=== PATIENT | female | born 1970 | race Caucasian/White ===

== ENCOUNTER 2019-12-20 14:38 | Emergency (ER) | payer BC, OTHER ==
--- NOTE | 2019-12-20 16:13 | ER Document Report ---
HPI - HPI Patient complains to provider of: right leg pain Time Seen by Provider: 12/20/19 15:30 Pain Level: 2 Context: 49-year-old female presents to the emergency room complaining of right diego pain. States she hit it on a wooden trunk last night around 8 PM sustaining a small laceration. States it bled for several minutes she cleansed it has not had any bleeding since. Her tetanus is up-to-date. Patient states she is been taking ibuprofen and Tylenol with relief. Is painful to walk. No history of previous trauma or injury to her leg. Denies any chest . Exacerbated by: Movement, Walking Relieved by: Remaining still Similar symptoms previously: No Recently seen / treated by doctor: No - ROS Systems Reviewed and Negative: Yes All other systems reviewed and negative - CONSTITUTIONAL Constitutional: DENIES: Fever - NEURO Neurology: DENIES: Weakness - REPRODUCTIVE Reproductive: DENIES: : - MUSCULOSKELETAL Musculoskeletal: REPORTS: Extremity pain - DERM Skin Color: Erythema Skin Problems: Laceration Past Medical History - General Information source: Patient - Social History Smoking Status: Never Smoker Frequency of alcohol use: Occasional Drug Abuse: None Family History: Reviewed & Not Pertinent Pulmonary Medical History: Reports: Hx COPD - Immunizations Hx Diphtheria, Pertussis, Tetanus Vaccination: Yes Vertical Provider Document - CONSTITUTIONAL Agree With Documented VS: Yes Exam Limitations: No Limitations General Appearance: Mild Distress - INFECTION CONTROL TRAVEL OUTSIDE OF THE [place] IN LAST 30 DAYS: No - HEENT HEENT: Atraumatic, Normocephalic - NECK Neck: Normal Inspection, Supple, Thyroid Normal - RESPIRATORY Respiratory: Breath Sounds Normal, No Respiratory Distress, Chest Non-Tender - CARDIOVASCULAR Cardiovascular: Regular Rate, Regular Rhythm, No Murmur - MUSCULOSKELETAL/EXTREMETIES Musculoskeletal/Extremeties: Tender - Tenderness, swelling, well-healing laceration noted to the right diego. It is tender to palpation. It is not warm to touch. No active discharge or draining noted. - NEURO Level of Consciousness: Awake, Alert, Appropriate Motor/Sensory: No Motor Deficit, No Sensory Deficit Notes: Positive right pedal pulse. Capillary refill less than 3 seconds. - DERM Integumentary: Warm, Dry, Laceration Notes: There is a 1 cm flap laceration that is healing to the right mid diego. Tender to palpation. No active discharge or draining noted. No active bleeding noted. Ecchymosis noted to right mid diego, tender to palpation. Course - Re-evaluation Re-evalutation: 12/20/19 16:49 Patient is resting comfortably she is able to ambulate with limping noted to the right leg. Reviewed negative x-ray results with patient. She was counseled on proper wound care. Patient will be given crutches. With crutch training provided by nursing staff as documented. She was counseled to rest, ice, eugenia vate her right leg. Outpatient follow-up with orthopedics if not improving in 2 to 3 days. On-call physician was provided. Patient was given strict return to the emergency room guidelines. Return for any new or worsening symptoms. All questions were answered. Patient verbalized understanding and agrees with plan of care. - Vital Signs Vital signs: Temp Pulse Resp BP Pulse Ox 98.3 F 87 18 139/83 H 98 12/20/19 14:55 12/20/19 14:55 12/20/19 14:55 12/20/19 14:55 12/20/19 14:55 - Diagnostic Test Radiology reviewed: Reports reviewed Procedures - Immobilization Right Leg Time completed: 16:50 Pre-Proc Neuro Vasc Exam: Normal Immobilizer type: Crutches Performed by: PCT Post-Proc Neuro Vasc Exam: Normal Alignment checked and good: Yes Discharge - Discharge Clinical Impression: Contusion of right leg Qualifiers: Encounter type: initial encounter Qualified Code(s): S80.11XA - Contusion of right lower leg, initial encounter Laceration of right lower leg Qualifiers: Encounter type: initial encounter Qualified Code(s): S81.811A - Laceration without foreign body, right lower leg, initial encounter Condition: Stable Disposition: HOME, SELF-CARE Instructions: Contusion ([facility]), Non-Sutured Laceration ([facility]) Additional Instructions: Rest, ice, and elevate your right knee. Continue with Tylenol and Motrin as needed for pain. Weightbearing as tolerated. Follow-up with orthopedics for any difficulties. Return to emergency room for any new or worsening symptoms. Referrals: ROLO BARRERA MD [ACTIVE STAFF] - Follow up as needed
--- NOTE | 2019-12-20 16:21 | RADIOLOGY REPORT (SQ) ---
EXAM DESCRIPTION: TIBIA FIBULA RIGHT IMAGES COMPLETED DATE/TIME: 12/20/2019 3:01 pm REASON FOR STUDY: injury COMPARISON: None. NUMBER OF VIEWS: Two views. TECHNIQUE: Two radiographic images acquired of the right tibia and fibula to include the knee and an kle in at least one projection. LIMITATIONS: None. FINDINGS: MINERALIZATION: Normal. BONES: No acute fracture or dislocation. No worrisome bone lesions. SOFT TISSUES: No obvious swelling or foreign body. OTHER: No other significant finding. IMPRESSION: NEGATIVE STUDY OF THE RIGHT TIBIA AND FIBULA. NO RADIOGRAPHIC EVIDENCE OF ACUTE INJURY. TECHNICAL DOCUMENTATION: JOB ID: [id number] 2010 [employer]- All Rights Reserved Reading location - IP/workstation name: [email or web address]
[2019-12-20 17:05] VITALS: BP 120/70
== END 2019-12-20 17:04 | disposition home or self-care (01) ==
LOC: ER 14:38
DX: S80.11XA Contusion of right lower leg, initial encounter (principal); S81.811A Laceration without foreign body, right lower leg, initial encounter; W22.09XA Striking against other stationary object, initial encounter
CPT/HCPCS: 99283

== ENCOUNTER → 2020-02-19 | Outpatient (CLI) | payer SELFPAY ==
[2020-02-19 10:59] VITALS: BP 123/73
--- NOTE | 2020-02-19 10:59 | ER RDC ASSESSMENT REPORT ---
Intake - In the Last 14 days Have you traveled outside [place]?: No Have you been in close contact with someone CONFIRMED: No Worked in Healthcare?: No - Symptoms Subjective Fever([place] feverish): Yes Chills: No Muscule Aches: Yes Runny Nose: No Sore Throat: No Cough (New or worsening chronic cough): Yes Shortness of breath: Yes Nausea or Vomiting: Yes Headache: No Abdominal Pain: No Diarrhea(3 or more loose stools in last 24 hours): No - Do you have any of the following Chronic lung disease: Asthma or emphysema or COPD: Yes Cystic Fibrosis: No Diabetes: No High Blood Pressure: No Cardiovascular Disease: No Chronic Kidney Disease: No Chronic Liver Disease: No Chronic blood disorder like Sickle Cell Disease: No Weak immune system due to disease or medication: No Neurologic condition that limits movement: No Developmental delay - Moderate to Severe: No Recent (within past 2 weeks) or current : No Morbid Obesity (>100 pounds over ideal weight): No - Objective Temperature: 98.6 F Pulse Rate: 90 Respiratory Rate: 18 Blood Pressure: 123/73 O2 Sat by Pulse Oximetry: 97 Objective: Given above, testing performed: flu strep, covid Disposition: Home; Selfcare General - General Stated Complaint: fatigue, congestion Time Seen by Provider: 02/19/20 10:45 Mode of Arrival: Ambulatory Information source: Patient - HPI Notes: 50-year-old female presents to [facility] clinic for COVID-19 testing. Patient denies any known exposure to Covid positive individual. Onset of symptoms 1 to 2 days ago. Patient is reporting subjective fever, muscle aches, dry cough, mild shortness of breath, nausea, fatigue and congestion. Denies any chills, runny nose or sore throat, abdominal pain or diarrhea, or headache. - Related Data Allergies/Adverse Reactions: codeine Allergy (Verified 12/20/19 16:57) prochlorperazine [From Compazine] Allergy (Verified 12/20/19 16:57) Sulfa (Sulfonamide Antibiotics) Allergy (Verified 12/20/19 16:57) Past Medical History - General Information source: Patient - Social History Family History: Reviewed & Not Pertinent - Past Medical History Cardiac Medical History: Reports: None Pulmonary Medical History: Reports: Hx COPD EENT Medical History: Reports: None Neurological Medical History: Reports: None Endocrine Medical History: Reports: None Renal/ Medical History: Reports: None Malignancy Medical History: Reports: None GI Medical History: Reports: None Musculoskeletal Medical History: Reports None Skin Medical History: Reports None Psychiatric Medical History: Reports: None Traumatic Medical History: Reports: None Infectious Medical History: Reports: None Past Surgical History: Reports: Hx Section Physical Exam - General General appearance: Appears well, Alert In distress: None Notes: PHYSICAL EXAMINATION: GENERAL: Well-appearing and in no acute distress. HEAD: Atraumatic, normocephalic. EYES: sclera anicteric, conjunctiva are normal. ENT: nares patent. Moist mucous membranes. NECK: Normal range of motion, supple without lymphadenopathy. LUNGS: No increased work of breathing. Lung sounds CTAB and equal. No wheezes rales or rhonchi. HEART: Regular rate and rhythm without murmurs. ABDOMEN: Soft, nontender, normal bowel sounds, no guarding. EXTREMITIES: Normal range of motion, no pitting edema. No cyanosis. NEUROLOGICAL: A&O x 3. Normal speech. PSYCH: Normal mood, normal affect. SKIN: Warm, Dry, normal turgor, no rashes or lesions noted Patient Education/Counseling Counseling/Education: Patient presents with symptoms associated with possible Covid 19 infection. Patient does not have emergency worrying symptoms such as difficulty breathing, shortness of breath, chest pain, pressure, confusion or cyanosis. Patient appears suitable for discharge as vital signs are stable and patient is nontoxic in appearance. Good return precautions have been discussed with patient, patient verbalized understanding and is agreeable with discharge plan of care at this time. Guidance for worsening S/SX: As a person under investigation for Covid 19, the [place] department of Health and Human Services, division of public health advises you to adhere to the following guidance until your test results are reported to you. If your test result is positive, you will receive additional information from your provider and your local health department at that time. Remain at home until you are cleared by the health provider or public health authorities. Keep a log of visitors to your home, notify any visitors to your home of your isolation status. If you plan to move to a new address or leave the county, notify the local health department in your County. Call your doctor or seek care if you have an urgent medical need. Before seeking medical care, call ahead to get instructions from the provider before arriving at the medical office clinic or hospital. Notify them that you are being tested for the virus that causes Covid 19 so that arrangements can be made, as necessary, to prevent transmission to others in the healthcare setting. Next, notify the local health department in your county. If a medical emergency arises and you need to call 911, inform the first responders that you are being tested for the virus that causes Covid 19. Next, notify the local health department in your county. RDC Discharge - Discharge Clinical Impression: Encounter for screening laboratory testing for COVID-19 virus Upper respiratory infection Qualifiers: URI type: unspecified URI Qualified Code(s): J06.9 - Acute upper respiratory infection, unspecified Condition: Good Disposition: Home; Selfcare
[2020-02-19 16:48] LABS: A TYPE INFLUENZA AG NEGATIVE (NEGATIVE)
[2020-02-19 16:49] LABS: B INFLUENZA AG NEGATIVE (NEGATIVE)
== END ==
LOC: RDC 10:11
PROVIDERS: ATTEND Registered Nurse
DX: J06.9 Acute upper respiratory infection, unspecified (principal); Z20.828 Contact with and (suspected) exposure to other viral communicable diseases; R50.9 Fever, unspecified; R05 Cough; M79.10 Myalgia, unspecified site; J44.9 Chronic obstructive pulmonary disease, unspecified; R06.02 Shortness of breath; R11.0 Nausea; R53.83 Other fatigue; R09.81 Nasal congestion; Z88.1 Allergy status to other antibiotic agents; Z88.6 Allergy status to analgesic agent; Z88.8 Allergy status to other drugs, medicaments and biological substances
CPT/HCPCS: 87070; 87880; 87635; 87804; 99201; 99211; C9803